=== PATIENT | male | born 1970 | race Caucasian/White ===

== ENCOUNTER 2021-08-25 10:47 | Outpatient (CLI) | payer OTHER ==
--- NOTE | 2021-08-25 11:45 | XRay Report ---
CHEST 2 VIEWS INDICATION: RULE OUT ACTIVE TB. COMPARISON: none FINDINGS: Support devices: None. Heart: Within normal limits. Lungs/pleura: No acute air space or interstitial disease. No pleural abnormality or pneumothorax. Additional findings: None. IMPRESSION: No acute findings. No evidence for primary or reactive tuberculosis chest x-ray. Signer Name: Farooq Gross Jr, MD Signed: 08/25/2021 11:38 AM Workstation Name: [id number]
== END 2021-08-25 10:48 | disposition home or self-care (01) ==
LOC: XRAY 10:47
PROVIDERS: ATTEND Internal Medicine
DX: A15.9 Respiratory tuberculosis unspecified (principal)
CPT/HCPCS: 71046